=== PATIENT | female | born 1970 | race Caucasian/White ===

== ENCOUNTER 2017-04-22 14:49 | Emergency (ER) | payer MEDICAID ==
[2017-04-22 15:10] VITALS: BP 117/80; PULSE 84; RESP 16; TEMP 98; O2SAT 98
--- NOTE | 2017-04-22 15:53 | ED PDOC ---
HPI: Chest Pain Time Seen by Provider: 04/22/17 15:27 Chief Complaint (Nursing): Anxiety History Per: Patient History/Exam Limitations: no limitations Onset/Duration Of Symptoms: Gradual (1 week) Current Symptoms Are (Timing): Gone Now Severity: Mild Quality: Tightness Associated Symptoms: denies: Nausea, Dyspnea, Diaphoresis, Syncope Modifying Factors: None Exacerbating Factors: None Alleviating Factors: None Additional History Per: Patient Additional Complaint(s): Pt c.o palpitations associated with feeling anxious and stressed. Patient states she is going through family problems at home. Denies SI/Hi plan or intent. no cp but a general tightness, refusing xanax her non exertional no sob, Past Medical History Reviewed: Historical Data, Nursing Documentation, Vital Signs Vital Signs: Last Vital Signs Temp 98.0 F 04/22/17 14:59 Pulse 84 04/22/17 14:59 Resp 16 04/22/17 14:59 BP 117/80 04/22/17 14:59 Pulse Ox 98 04/22/17 15:54 - Medical History PMH: Anxiety, Asthma, Depression, HTN Denies: HIV, Chronic Kidney Disease, Seizures, Sexually Transmitted Disease - Family History Family History: States: Unknown Family Hx - Living Arrangements Living Arrangements: With Family - Social History Current smoker - smoking cessation education provided: No - Immunization History Hx Tetanus Toxoid Vaccination: No Hx Influenza Vaccination: No Hx Pneumococcal Vaccination: No - Home Medications Home Medications: Ambulatory Orders Medication Instructions Recorded Amoxicillin 500 mg PO DAILY 03/06/16 Clarithromycin 500 mg PO DAILY 03/06/16 Lansoprazole 15 mg PO DAILY 03/06/16 Epinephrine HCl [Epipen 0.3 mg MR ONCE PRN #1 ml 03/07/16 Auto-Injector] Prednisone [Deltasone] 20 mg PO DAILY #5 tablet 03/07/16 Cyclobenzaprine [Cyclobenzaprine 5 mg PO TID #12 tab 04/22/17 HCl] - Allergies Allergies/Adverse Reactions: Allergies Allergy/AdvReac Type Severity Reaction Status Date / Time cortisone Allergy Verified 01/07/17 15:33 JULIANA Risk Score for UA/NSTEMI - JULIANA Risk Score Age > 64: NO 3 or more CAD Risk Factors: NO Known CAD (Stenosis greater than 50%): NO Aspirin use in past 7 days: NO Severe Angina: NO EKG ST changes greater than 0.5mm: NO Positive Cardiac Marker: NO JULIANA Score: 0 Risk %: 5% Wells Criteria for PE - Wells Criteria for Pulmonary Embolism Clinical Signs and Symptoms of DVT: No P.E is #1 Diagnosis, or Equally Likely: No Heart Rate >100: No Immobilization at least 3 days;Surgery previous 4 weeks: No Previous, objectively diagnosed PE or DVT: No Hemoptysis: No Malignancy w/treatment within 6 months, or palliative: No Total Score: 0 Review of Systems ROS Statement: Except As Marked, All Systems Reviewed And Found Negative Constitutional: Negative for: Fever, Chills Cardiovascular: Positive for: Palpitations. Negative for: Orthopnea, Paroxysmal Noc. Dyspnea, Edema, Light Headedness Respiratory: Negative for: Cough, Shortness of Breath Gastrointestinal: Negative for: Nausea, Vomiting, Abdominal Pain, Diarrhea Genitourinary Female: Negative for: Dysuria Neurological: Negative for: Weakness, Numbness, Altered Mental Status, Headache , Dizziness Physical Exam - Reviewed Nursing Documentation Reviewed: Yes Vital Signs Reviewed: Yes - Physical Exam Appears: Positive for: Uncomfortable Head Exam: Positive for: ATRAUMATIC, NORMAL INSPECTION, NORMOCEPHALIC Eye Exam: Positive for: Normal appearance, EOMI, PERRL Neck: Positive for: Normal, Painless ROM, Supple. Negative for: Decreased ROM, Limited ROM, Trachea Midline, Pain On Movement Of Neck Cardiovascular/Chest: Positive for: Regular Rate, Rhythm, Chest Non Tender. Negative for: Edema, Gallop, Murmur, Bradycardia, Tachycardia, Ectopy, Friction Rub, Irregularly Irregular Respiratory: Positive for: Normal Breath Sounds. Negative for: Decreased Breath Sounds, Accessory Muscle Use, Crackles, Rales, Rhonchi, Stridor, Wheezing , Respiratory Distress, Plerual Rub Pulses-Radial (L): 2+ Pulses-Radial (R): 2+ Gastrointestinal/Abdominal: Positive for: Normal Exam, Bowel Sounds, Soft. Negative for: Tenderness Back: Positive for: Normal Inspection. Negative for: L CVA Tenderness, R CVA Tenderness Extremity: Positive for: Normal ROM. Negative for: Tenderness, Pedal Edema, Calf Tenderness, Capillary Refill, Deformity, Swelling Neurologic/Psych: Positive for: Alert, office clinician II-XII, Oriented, Mood/Affect ( anxious), Gait (steady). Negative for: Motor/Sensory Deficits, Aphasia, Facial Droop - Laboratory Results Result Diagrams: 04/22/17 15:49 04/22/17 15:49 - ECG ECG: Positive for: Interpreted By Me ECG Rhythm: Positive for: Normal QRS, Normal ST Segment, Sinus Rhythm (71). Negative for: ST/T Changes (no evidence of ischemia) O2 Sat by Pulse Oximetry: 98 Pulse Ox Interpretation: Normal - Radiology X-Ray: Interpreted by Me X-Ray Interpretation: No Acute Disease - Progress ED Course And Treament: cta neg, advise flexeril for pain advise close f/u with pmd or medical clinic pt agree's with plan and leaves ambulatory and in good spirits. Re-evaluation Time: 19:20 Condition: Improved Disposition - Clinical Impression Clinical Impression: Palpitations - Patient ED Disposition Is Patient to be Admitted: No Counseled Patient/Family Regarding: Studies Performed, Diagnosis, Need For Followup, Rx Given - Disposition Referrals: [facility] [place] [Outside] (2 to 3 days) Disposition: Routine/Home Disposition Time: 19:41 Condition: GOOD Prescriptions: Cyclobenzaprine [Cyclobenzaprine HCl] 5 mg PO TID #12 tab Instructions: Palpitations (ED) Forms: [email or web address] (Fijian)
[2017-04-22 16:01] LABS: BASO # 0.1 K/uL (0.0-0.2); BASO % 0.8 % (0.0-2.0); EOS # 0.2 K/uL (0.0-0.7); EOS % 3.1 % (0.0-4.0); HEMATOCRIT 37.2 % (34.0-47.0); LYMPH # 2.3 K/uL (1.0-4.3); LYMPH % 33.8 % (20.0-40.0); MEAN CELL VOLUME 91.6 fl (81.0-99.0); MEAN CORPUSCULAR HEMOGLOBIN 30.4 pg (27.0-31.0); MEAN CORPUSCULAR HGB CONC 33.2 g/dL (33.0-37.0); MEAN PLATELET VOLUME 9.6 fl (7.2-11.7); MONO # 0.6 K/uL (0.0-0.8); MONO % 9.4 % (0.0-10.0); NEUT # 3.6 K/uL (1.8-7.0); NEUT % 52.9 % (50.0-75.0); NRBC % 0.1 % (0.0-0.0); RED CELL DISTRIBUTION WIDTH 13.2 % (11.5-14.5); WHITE BLOOD COUNT 6.7 K/uL (4.8-10.8)
[2017-04-22 16:16] LABS: ALB/GLOB RATIO 1.2 (1.0-2.1); ALKALINE PHOSPHATASE 56 U/L (38-126); ALT/SGPT 25 U/L (9-52); AST/SGOT 18 U/L (14-36); BILIRUBIN,TOTAL 1.5 mg/dl (0.2-1.3); CALCIUM 8.9 mg/dL (8.4-10.2); CARBON DIOXIDE 23 mmol/L (22-30); CHLORIDE 107 mmol/L (98-107); GFR AFRICAN-AMERICAN > 60; GLUCOSE,RANDOM 101 mg/dL (65-105); LIPASE 93 U/L (23-300); MAGNESIUM 2.1 MG/DL (1.6-2.3); POTASSIUM 3.8 MMOL/L (3.6-5.0); SODIUM 139 mmol/l (132-148); TOTAL PROTEIN 7.6 G/DL (6.3-8.2)
[2017-04-22 16:17] LABS: BLOOD UREA NITROGEN 7 mg/dl (7-17)
[2017-04-22 16:22] LABS: PARTIAL THROMBOPLASTIN TIME 30.9 Seconds (25.6-37.1)
[2017-04-22 16:35] LABS: RBC URINE 2 /hpf (0-3); URINE BACTERIA RARE (<OCC); URINE BILIRUBIN NEGATIVE (NEGATIVE); URINE BLOOD SMALL (NEGATIVE); URINE COLOR YELLOW (YELLOW); URINE GLUCOSE (UA) NEG (Normal); URINE KETONE NEGATIVE (NEGATIVE); URINE LEUKOCYTE ESTERASE NEG Leu/uL (Negative); URINE PROTEIN NEGATIVE (NEGATIVE); URINE UROBILINOGEN 0.2-1.0 mg/dL (0.2-1.0); WBC URINE 2 /hpf (0-5)
[2017-04-22 16:43] LABS: THYROID STIMULATING HORMONE 1.02 mIU/ML (0.46-4.68)
[2017-04-22 17:12] LABS: T4 7.58 ug/dl (5.5-11.0)
[2017-04-22] MEDS ORDERED: Iodixanol 320 MG/ML 100 ML BOTTLE IV ONE (18:13)
[2017-04-22] MEDS ORDERED: Sodium Chloride 0.9% 50 ML IV ONE (18:13)
--- NOTE | 2017-04-22 19:29 | CT ---
EXAM: CT Angiography Chest With Intravenous Contrast EXAM DATE/TIME: 04/22/2017 5:04 PM CLINICAL HISTORY: 46 years old, female; Pain; Chest pain; Left-sided chest pain; Patient HX: SOB palpitation cp lt>rt TECHNIQUE: Axial computed tomographic angiography images of the chest with intravenous contrast using pulmonary embolism protocol. All CT scans at this facility use one or more dose reduction techniques, viz.: automated exposure control; ma/kV adjustment per patient size (including targeted exams where dose is matched to indication; i.e. head); or iterative reconstruction technique. MIP reconstructed images were created and reviewed. Coronal and sagittal reformatted images were created and reviewed. CONTRAST: 98 mL of VISIPAQUE administered intravenously. COMPARISON: No relevant prior studies available. FINDINGS: LIMITATIONS: High-density artifact caused by the patient's abdominal wall touching the CT gantry. Mild respiratory motion artifact. PULMONARY ARTERIES: Contrast opacification of the pulmonary arteries is adequate, and there are no filling defects seen to suggest pulmonary embolism. AORTA: No evidence of aortic dissection. LUNGS: No evidence of significant focal consolidation/infiltrate in the lungs. No evidence of diffuse pulmonary vascular congestion. PLEURAL SPACE: No pneumothorax or pleural effusions seen. HEART: Heart appears mildly prominent in size for age. Recommend clinical correlation. No evidence of significant pericardial effusion. BONES/JOINTS: No acute bony abnormality identified. SOFT TISSUES: No acute abnormality of the visualized soft tissues identified. LYMPH NODES: No evidence of diffuse lymphadenopathy. IMPRESSION: - No evidence of pulmonary embolism or other significant acute abnormality in the chest. - See above for remaining findings.
--- NOTE | 2017-04-23 11:16 | RAD ---
HISTORY: palpitiaions COMPARISON: No prior. FINDINGS: LUNGS: No active pulmonary disease. PLEURA: No significant pleural effusion identified, no pneumothorax apparent. CARDIOVASCULAR: Normal. OSSEOUS STRUCTURES: No significant abnormalities. VISUALIZED UPPER ABDOMEN: Normal. OTHER FINDINGS: None. IMPRESSION: No active disease.
--- NOTE | 2017-04-23 11:58 | CARD ---
APPROVED REPORT EKG Measurement Heart [id number] 140P57 [id number] <Conclusion> Normal sinus rhythm Possible Left atrial enlargement Borderline ECG
== END 2017-04-22 20:33 | disposition home or self-care (01) ==
LOC: H.ER 14:49
DX: R00.2 Palpitations (principal); F32.9 Major depressive disorder, single episode, unspecified; F41.9 Anxiety disorder, unspecified; I10 Essential (primary) hypertension; J45.909 Unspecified asthma, uncomplicated
CPT/HCPCS: 71010; 71275; 80053; 80324; 80345; 80346; 80349; 80353; 80358; 80361; 81003; 81025; 83690; 83735; 83880; 83992; 84436; 84443; 84480; 84484; 85025; 85378; 85610; 85730; 93005; 99281; Q9967

== ENCOUNTER 2017-06-30 12:54 | Emergency (ER) | payer MEDICAID ==
[2017-06-30 13:13] VITALS: RESP 20; O2SAT 98
[2017-06-30] MEDS ORDERED: Alum-Mag Hydrox-Simethicone Susp (30 mL) PO STA (13:56)
[2017-06-30 14:16] LABS: BASO # 0.1 K/uL (0.0-0.2); BASO % 1.2 % (0.0-2.0); EOS # 0.3 K/uL (0.0-0.7); EOS % 4.1 % (0.0-4.0); HEMOGLOBIN 12.3 g/dL (12.0-16.0); LYMPH % 26.8 % (20.0-40.0); MEAN CELL VOLUME 90.3 fl (81.0-99.0); MEAN CORPUSCULAR HEMOGLOBIN 31.5 pg (27.0-31.0); MEAN CORPUSCULAR HGB CONC 34.9 g/dL (33.0-37.0); MEAN PLATELET VOLUME 9.7 fl (7.2-11.7); MONO # 0.6 K/uL (0.0-0.8); MONO % 7.5 % (0.0-10.0); NEUT # 4.5 K/uL (1.8-7.0); NEUT % 60.4 % (50.0-75.0); NRBC % 0.2 % (0.0-0.0); RBC 3.9 Mil/uL (3.80-5.20); WHITE BLOOD COUNT 7.4 K/uL (4.8-10.8)
[2017-06-30] MEDS ORDERED: Alum-Mag Hydrox-Simethicone Susp (30 mL) ONE (14:19)
[2017-06-30 14:27] LABS: ALB/GLOB RATIO 1.1 (1.0-2.1); ALBUMIN 3.8 g/dL (3.5-5.0); ALT/SGPT 21 U/L (9-52); AST/SGOT 19 U/L (14-36); BLOOD UREA NITROGEN 13 mg/dl (7-17); CALCIUM 8.5 mg/dL (8.4-10.2); GFR AFRICAN-AMERICAN > 60; GFR NON-AFRICAN AMERICAN > 60
--- NOTE | 2017-06-30 15:19 | ED PDOC ---
HPI: Abdomen Time Seen by Provider: 06/30/17 13:14 Chief Complaint (Nursing): Palpitations Chief Complaint (Provider): Abdominal pain, left sided pain, chest pain History Per: Patient History/Exam Limitations: no limitations Onset/Duration Of Symptoms: Days Outside of [place] travel?: No Current Symptoms Are (Timing): Still Present Additional Complaint(s): 46 yo female with history of anxiety presents with multiples complaints. PT reports episodes of abdominal pain, chest burning and sensation of choking. PT states she has been having these episodes on/off for 2 years. PT was seen by GI and told she has H.Pylori however symptoms continued. Pt states she also has intermittent left leg and arm pain on/off for months. Pt states she also has been having intermittent headaches. Pt requesting MRI for evaluation of CA. No history of, no recent weight loss. Past Medical History Vital Signs: Last Vital Signs Temp 98.4 F 06/30/17 13:11 Pulse 88 06/30/17 13:11 Resp 20 06/30/17 13:11 BP 103/69 06/30/17 13:11 Pulse Ox 98 06/30/17 15:19 - Medical History PMH: Anxiety, Asthma, Depression, HTN Denies: HIV, Chronic Kidney Disease, Seizures, Sexually Transmitted Disease - Family History Family History: States: Unknown Family Hx - Immunization History Hx Tetanus Toxoid Vaccination: No Hx Influenza Vaccination: No Hx Pneumococcal Vaccination: No - Home Medications Home Medications: Ambulatory Orders Medication Instructions Recorded Amoxicillin 500 mg PO DAILY 03/06/16 Clarithromycin 500 mg PO DAILY 03/06/16 Lansoprazole 15 mg PO DAILY 03/06/16 Epinephrine HCl [Epipen 0.3 mg MR ONCE PRN #1 ml 03/07/16 Auto-Injector] Prednisone [Deltasone] 20 mg PO DAILY #5 tablet 03/07/16 Cyclobenzaprine [Cyclobenzaprine 5 mg PO TID #12 tab 04/22/17 HCl] - Allergies Allergies/Adverse Reactions: Allergies Allergy/AdvReac Type Severity Reaction Status Date / Time cortisone Allergy Verified 01/07/17 15:33 Physical Exam - Reviewed Nursing Documentation Reviewed: Yes Vital Signs Reviewed: Yes - Physical Exam Appears: Positive for: Well, Non-toxic, No Acute Distress Head Exam: Positive for: ATRAUMATIC, NORMAL INSPECTION, NORMOCEPHALIC Skin: Positive for: Normal Color, Warm, DRY Eye Exam: Positive for: EOMI, Normal appearance, PERRL ENT: Positive for: Normal ENT Inspection Neck: Positive for: Normal, Painless ROM Cardiovascular/Chest: Positive for: Regular Rate, Rhythm Respiratory: Positive for: CNT, Normal Breath Sounds Gastrointestinal/Abdominal: Positive for: Normal Exam, Bowel Sounds, Soft Back: Positive for: Normal Inspection Extremity: Positive for: Normal ROM Neurologic/Psych: Positive for: Alert, Oriented - Laboratory Results Result Diagrams: 06/30/17 14:05 06/30/17 14:05 - ECG O2 Sat by Pulse Oximetry: 98 Medical Decision Making Medical Decision Making: Head CT ordered for headache and left sided arm and leg pain and weakness. When patient being transported to CT at 1520 patient begins yelling that all the ER ever does is blood work. Discussed with patient the abdomen CT is not indicated at this time. PT becomes agitated in ER and CT ordered. Pt had head CT , chest CT and abdomen CT in the last 2 years. Pt also requested MRI on initial arrival to the room. All reports, which are normal, given to patient for follow-up. Disposition - Clinical Impression Clinical Impression: Abdominal pain, Pain of left side of body - Patient ED Disposition Is Patient to be Admitted: No - Disposition [facility]errals[facility]] [facility] [place] [Outside] [facility] [Outside] [facility] [place] [Outside] Disposition: Routine/Home Disposition Time: 17:10 Condition: GOOD Instructions: Acute Abdomen (Belly Pain), Adult (DC) Forms: [employer] (Lao)
--- NOTE | 2017-06-30 16:16 | CT ---
PROCEDURE: CT scan brain dated 06/30/2017 HISTORY: Left-sided pain, weakness, intermittent COMPARISON: None available. TECHNIQUE: Axial computed tomography images were obtained through the head/brain without intravenous contrast. Radiation dose: Total exam DLP = 880.65 mGy-cm. This CT exam was performed using one or more of the following dose reduction techniques: Automated exposure control, adjustment of the mA and/or kV according to patient size, and/or use of iterative reconstruction technique. FINDINGS: HEMORRHAGE: No acute parenchymal, subarachnoid or extra-axial hemorrhage. BRAIN: No evidence large acute infarct. No obvious parenchymal nor extra-axial mass or collection seen on this noncontrast study. VENTRICLES: Unremarkable. No hydrocephalus. CALVARIUM: Calvarium is intact. PARANASAL SINUSES: Mild mucosal thickening noted in the left chamber sphenoid sinus MASTOID AIR CELLS: Unremarkable as visualized. No inflammatory changes. OTHER FINDINGS: Visualized portions of the orbits appear grossly unremarkable. IMPRESSION: No acute intracranial hemorrhage. Mild mucosal thickening left chamber sphenoid sinus
--- NOTE | 2017-06-30 16:33 | CT ---
PROCEDURE: CT Abdomen and Pelvis without intravenous contrast HISTORY: left sided pain COMPARISON: 07/22/2015 CT abdomen and pelvis. TECHNIQUE: Unenhanced study. Neither oral nor intravenous contrast administered. . Radiation dose: Total exam DLP = 871.07 mGy-cm. This CT exam was performed using one or more of the following dose reduction techniques: Automated exposure control, adjustment of the mA and/or kV according to patient size, and/or use of iterative reconstruction technique. FINDINGS: LOWER THORAX: Unremarkable. LIVER: Unremarkable. No gross lesion or ductal dilatation. GALLBLADDER AND BILE DUCTS: Unremarkable. PANCREAS: Unremarkable. No gross lesion or ductal dilatation. SPLEEN: Unremarkable. ADRENALS: Unremarkable. No mass. KIDNEYS AND URETERS: Unremarkable. No hydronephrosis. No solid mass. VASCULATURE: Unremarkable. No aortic aneurysm. BOWEL: Constipation without fecal impaction or obstruction. APPENDIX: No abnormalities to suggest acute appendicitis. No right lower quadrant inflammatory processes identified. PERITONEUM: Unremarkable. No free fluid. No free air. LYMPH NODES: Unremarkable. No enlarged lymph nodes. BLADDER: Unremarkable. REPRODUCTIVE: Enlarged uterus without focal abnormality. Stable calcifications within the right adnexa. BONES: No acute fracture. OTHER FINDINGS: None. IMPRESSION: No acute findings related to/accounting for the clinical presentation. Additional benign and/or incidental findings described above. No significant interval change compared to the prior examination(s).
--- NOTE | 2017-06-30 16:42 | RAD ---
HISTORY: Left chest pain COMPARISON: 04/22/2017 TECHNIQUE: Chest PA and lateral FINDINGS: LUNGS: No active pulmonary disease. PLEURA: No significant pleural effusion identified. No pneumothorax apparent. CARDIOVASCULAR: Normal. OSSEOUS STRUCTURES: No significant abnormalities. VISUALIZED UPPER ABDOMEN: Normal. OTHER FINDINGS: None. IMPRESSION: No active disease. No significant interval change compared to the prior examination(s).
[2017-06-30 18:00] VITALS: BP 120/70; PULSE 74; TEMP 98.6
--- NOTE | 2017-07-01 10:39 | CARD ---
APPROVED REPORT EKG Measurement Heart [id number] [place] 136P52 [id number] <Conclusion> Normal sinus rhythm Normal ECG
== END 2017-06-30 18:00 | disposition home or self-care (01) ==
LOC: H.ER 12:54
DX: R10.9 Unspecified abdominal pain (principal)

== ENCOUNTER 2017-08-29 13:43 | Emergency (ER) | payer MEDICAID ==
--- NOTE | 2017-08-29 14:18 | ED PDOC ---
HPI: Psych/Substance Abuse Time Seen by Provider: 08/29/17 13:46 Chief Complaint (Nursing): Psychiatric Evaluation Chief Complaint (Provider): Denies complaint History Per: Patient History/Exam Limitations: no limitations Additional Complaint(s): Pt was in court today with son and told the tree climber she was going to kill herself. Pt has history of anxiety/depression and states she just said it because she was upset. Past Medical History Reviewed: Historical Data, Nursing Documentation, Vital Signs Vital Signs: Last Vital Signs Temp 97.8 F 08/29/17 13:48 Pulse 88 08/29/17 13:48 Resp 18 08/29/17 13:48 BP 134/90 08/29/17 13:48 Pulse Ox 99 08/29/17 13:48 - Medical History PMH: Anxiety, Asthma, Depression, HTN Denies: HIV, Chronic Kidney Disease, Seizures, Sexually Transmitted Disease - Family History Family History: States: Unknown Family Hx - Immunization History Hx Tetanus Toxoid Vaccination: No Hx Influenza Vaccination: No Hx Pneumococcal Vaccination: No - Home Medications Home Medications: Ambulatory Orders Medication Instructions Recorded Amoxicillin 500 mg PO DAILY 03/06/16 Clarithromycin 500 mg PO DAILY 03/06/16 Lansoprazole 15 mg PO DAILY 03/06/16 Epinephrine HCl [Epipen 0.3 mg MR ONCE PRN #1 ml 03/07/16 Auto-Injector] Prednisone [Deltasone] 20 mg PO DAILY #5 tablet 03/07/16 Cyclobenzaprine [Cyclobenzaprine 5 mg PO TID #12 tab 04/22/17 HCl] - Allergies Allergies/Adverse Reactions: Allergies Allergy/AdvReac Type Severity Reaction Status Date / Time cortisone Allergy Verified 01/07/17 15:33 Review of Systems ROS Statement: Except As Marked, All Systems Reviewed And Found Negative Constitutional: Negative for: Fever, Chills Psych: Negative for: Depression, Psychosis, Suicidal ideation Physical Exam - Reviewed Nursing Documentation Reviewed: Yes Vital Signs Reviewed: Yes - Physical Exam Appears: Positive for: Well, Non-toxic, No Acute Distress Head Exam: Positive for: ATRAUMATIC, NORMAL INSPECTION, NORMOCEPHALIC Skin: Positive for: Normal Color, Warm, DRY Eye Exam: Positive for: Normal appearance ENT: Positive for: Normal ENT Inspection Neck: Positive for: Normal, Painless ROM Cardiovascular/Chest: Positive for: Regular Rate, Rhythm Respiratory: Positive for: CNT, Normal Breath Sounds Back: Positive for: Normal Inspection Extremity: Positive for: Normal ROM Neurologic/Psych: Positive for: Alert, Oriented - Laboratory Results Urine POC: Negative - ECG O2 Sat by Pulse Oximetry: 99 Medical Decision Making Medical Decision Makin - Pt asking to leave. Inform patient that due to her statement in court that she would have to stay to see a social services manager for evaluation. Pt then follows me out of the room and begins yelling aggressively in the hallway. Pt states she does not want me as her provider. 1:1 ordered. Pt moved to room 8. Endorsed to LEATHA Marcelino. Disposition - Clinical Impression Clinical Impression: Encounter for psychiatric assessment - Patient ED Disposition Is Patient to be Admitted: No - Disposition Disposition: Transfer of Care Disposition Time: 14:36 Condition: STABLE Forms: [employer] (Gibraltarian)
--- NOTE | 2017-08-29 14:38 | ED PDOC ---
- Laboratory Results Urine POC: Negative - ECG O2 Sat by Pulse Oximetry: 99 Medical Decision Making Medical Decision Making: Case was signed out bid writer from DANIELLA Pardo pending crisis eval. Patient is acutely anxious, 0.25 Xanax administered. EKG ordered but patient refused. As per crisis counselor and psychiatrist injection molding operator Dr. North, patient does not meet criteria for admission and is stable for discharge. Patient was given follow-up appointment this coming at mental health clinic. Disposition Counseled Patient/Family Regarding: Diagnosis, Need For Followup - Clinical Impression Clinical Impression: Anxiety - POA Present On Arrival: None - Disposition Referrals: [facility] [Outside] Disposition: Routine/Home Disposition Time: 15:14 Condition: STABLE Additional Instructions: Follow-up as scheduled this coming . Instructions: Anxiety, Adult (DC) Forms: [employer] (Tajik)
[2017-08-29 15:24] VITALS: BP 128/78; PULSE 78; RESP 19; TEMP 97; O2SAT 98
== END 2017-08-29 15:30 | disposition home or self-care (01) ==
LOC: H.ER 13:43
DX: F41.9 Anxiety disorder, unspecified (principal)

== ENCOUNTER 2018-03-28 17:07 | Observation (INO) | payer MEDICAID ==
[2018-03-28] MEDS ORDERED: DiphenhydrAMINE 50 mg/ml Inj IVP ONE (18:09)
--- NOTE | 2018-03-28 18:25 | RAD ---
Date of service: 03/28/2018 HISTORY: Shortness of breath COMPARISON: 06/30/2017 TECHNIQUE: Chest PA and lateral FINDINGS: LINES AND TUBES: None. LUNG AND PLEURA: The lungs are well inflated and clear. No pleural effusion or pneumothorax. HEART AND MEDIASTINUM: The heart is not enlarged. No aortic atherosclerotic calcification present. The hilar and mediastinal contours are within normal limits. SKELETAL STRUCTURES: The bony structures are within normal limits for the patient's age. VISUALIZED UPPER ABDOMEN: Normal. OTHER FINDINGS: None. IMPRESSION: No active pulmonary disease.
[2018-03-28 18:27] LABS: BARBITURATES, UR NEGATIVE (NEGATIVE); BENZODIAZEPINES, UR NEGATIVE (NEGATIVE); OPIATES, UR NEGATIVE (NEGATIVE); PHENCYCLIDINE, UR NEGATIVE (NEGATIVE)
[2018-03-28] MEDS ORDERED: Albuterol 0.083% Inhal Sol (2.5 mg/3 mL) UD INH ONE (18:37)
--- NOTE | 2018-03-28 18:46 | ED PDOC ---
HPI: Chest Pain Additional Complaint(s): Pt seen and examined at bedside with attending. 47F PMH anxiety/depression/asthma p/w non-radiating "chronic chest pain" that is "pressure, pushing down on me" and has dizzines, but is preoccupied with recent findings of bedbugs in her house that she feels is contributing to her new symptoms of itching of her "entire body". Pt denies associated nausea, sweating with this chest pain. Patient required redirection numerous times throughout the interview and appeared far more concerned about the state of her apartment than her health. She was informed of new changes on her EKG and agreed to lab work after initially declining. <Kacy Kenney - Last Filed: 03/28/18 18:54> <Walker Garcia - Last Filed: 03/28/18 19:03> Time Seen by Provider: 03/28/18 17:30 Chief Complaint (Nursing): Chest Pain Past Medical History Vital Signs: Last Vital Signs Temp 36.4 C 03/28/18 17:17 Pulse 82 03/28/18 17:17 Resp 16 03/28/18 17:17 BP 138/83 03/28/18 17:17 Pulse Ox 100 03/28/18 17:17 - Medical History PMH: Anxiety, Asthma, Depression, HTN Denies: HIV, Chronic Kidney Disease, Seizures, Sexually Transmitted Disease - Family History Family History: States: Unknown Family Hx - Immunization History Hx Tetanus Toxoid Vaccination: Yes Hx Influenza Vaccination: No Hx Pneumococcal Vaccination: No <Kacy Kenney - Last Filed: 03/28/18 18:54> Vital Signs: Last Vital Signs Temp 97.6 F 03/28/18 17:17 Pulse 82 03/28/18 17:17 Resp 16 03/28/18 17:17 BP 138/83 03/28/18 17:17 Pulse Ox 100 03/28/18 18:54 <Walker Garcia - Last Filed: 03/28/18 19:03> - Home Medications Home Medications: Ambulatory Orders Medication Instructions Recorded Amoxicillin 500 mg PO DAILY 03/06/16 Clarithromycin 500 mg PO DAILY 03/06/16 Lansoprazole 15 mg PO DAILY 03/06/16 Epinephrine HCl [Epipen 0.3 mg MR ONCE PRN #1 ml 03/07/16 Auto-Injector] Prednisone [Deltasone] 20 mg PO DAILY #5 tablet 03/07/16 Cyclobenzaprine [Cyclobenzaprine 5 mg PO TID #12 tab 04/22/17 HCl] Acetaminophen/Butalbital/Caf 1 tab PO Q4 PRN #30 tab 10/04/17 [Fioricet] - Allergies Allergies/Adverse Reactions: Allergies Allergy/AdvReac Type Severity Reaction Status Date / Time cortisone Allergy Verified 10/04/17 10:30 carrot AdvReac Verified 03/21/18 10:18 celery AdvReac Verified 03/21/18 10:18 gluten AdvReac Verified 03/21/18 10:18 lactose AdvReac Verified 03/21/18 10:18 peanut AdvReac Verified 03/21/18 10:18 Review of Systems ROS Statement: Except As Marked, All Systems Reviewed And Found Negative Cardiovascular: Positive for: Chest Pain. Negative for: Palpitations Respiratory: Negative for: Shortness of Breath Gastrointestinal: Negative for: Nausea, Vomiting, Abdominal Pain Skin: Positive for: Other (Itching) <Kacy Kenney - Last Filed: 03/28/18 18:54> Physical Exam - Reviewed Vital Signs Reviewed: Yes - Physical Exam Appears: Positive for: Well, Non-toxic, In Acute Distress (appears extremely anxious) Head Exam: Positive for: ATRAUMATIC Skin: Positive for: Normal Color, Warm, Dry. Negative for: Rash Eye Exam: Positive for: Normal appearance Cardiovascular/Chest: Positive for: Regular Rate, Rhythm. Negative for: Murmur Respiratory: Positive for: Normal Breath Sounds, Wheezing (mild Rt). Negative for: Crackles, Rales, Rhonchi Gastrointestinal/Abdominal: Positive for: Bowel Sounds, Soft. Negative for: Tenderness Extremity: Positive for: Normal ROM. Negative for: Calf Tenderness Neurologic/Psych: Positive for: Mood/Affect (Distracted, anxious) <Kacy Kenney - Last Filed: 03/28/18 18:54> - ECG O2 Sat by Pulse Oximetry: 100 <Kacy Kenney - Last Filed: 03/28/18 18:54> Medical Decision Making Medical Decision Making: Pt anxious and distracted but presence of inverted T waves (new finding when compared to EKG 03/21/2018) in inferior leads, AVSS. - CBC, CMP, Troponin, Mg - DuoNebs, Benadryl 25mg - CXR - Crisis Eval 1854 CXR w/o evidence of active disease. <Kacy Kenney - Last Filed: 03/28/18 18:54> Medical Decision Making: Time: 1899 -- Patient endorsed to Dr. Portillo, pending lab and re-evaluation. Patient is a likely admit. Scribe Attestation: Documented by Sampson Baltazar, acting as a scribe for Walker Garcia MD. Provider Scribe Attestation: All medical record entries made by the Scribe were at my direction and personally dictated by me. I have reviewed the chart and agree that the record accurately reflects my personal performance of the medical decision making for this patient. I have also personally directed, reviewed, and agree with the discharge instructions and disposition. <Walker Garcia Y - Last Filed: 03/28/18 19:03> Disposition <Kacy Kenney - Last Filed: 03/28/18 18:54> <Walker Garcia - Last Filed: 03/28/18 19:03> - Disposition Referrals: FAMILY PROVIDER,NO [Primary Care Provider] - Forms: [employer] ([employer])
[2018-03-28] MEDS ORDERED: DiphenhydrAMINE 50 mg/ml Inj ONE (18:57)
--- NOTE | 2018-03-28 19:12 | ED PDOC ---
- Laboratory Results Result Diagrams: 03/28/18 19:14 03/28/18 19:14 - ECG O2 Sat by Pulse Oximetry: 100 (RA) Pulse Ox Interpretation: Normal Medical Decision Making Medical Decision Making: Time: 1899 -- Patient endorsed to me by Dr. Garcia, pending lab and re-evaluation. Patient is a likely admit. Scribe Attestation: Documented by Sampson Baltazar, acting as a scribe for Braydon Portillo MD. Provider Scribe Attestation: All medical record entries made by the Scribe were at my direction and personally dictated by me. I have reviewed the chart and agree that the record accurately reflects my personal performance of the history, physical exam, medical decision making, and the department course for this patient. I have also personally directed, reviewed, and agree with the discharge instructions and disposition. Disposition Discussed With DrZach: Sachin Davis Counseled Patient/Family Regarding: Studies Performed, Diagnosis - Clinical Impression Clinical Impression: Chest pain - POA Present On Arrival: None - Disposition Disposition: Hospitalized as Observation Patient Disposition Time: 20:00 Condition: FAIR
[2018-03-28 19:18] LABS: HEMOGLOBIN 12.5 g/dL (12.0-16.0); MEAN CELL VOLUME 91.2 fl (81.0-99.0); MEAN CORPUSCULAR HEMOGLOBIN 29.9 pg (27.0-31.0); MEAN CORPUSCULAR HGB CONC 32.8 g/dL (33.0-37.0); RBC 4.18 Mil/uL (3.80-5.20); WHITE BLOOD COUNT 7.3 K/uL (4.8-10.8)
[2018-03-28 19:38] LABS: ALB/GLOB RATIO 1.1 (1.0-2.1); ALBUMIN 4.3 g/dL (3.5-5.0); ALT/SGPT 31 U/L (9-52); AST/SGOT 33 U/L (14-36); BLOOD UREA NITROGEN 11 mg/dl (7-17); CALCIUM 8.9 mg/dL (8.4-10.2); GFR NON-AFRICAN AMERICAN > 60
[2018-03-29 05:59] LABS: BASO # 0.1 K/uL (0.0-0.2); BASO % 1.3 % (0.0-2.0); EOS # 0.2 K/uL (0.0-0.7); EOS % 4.1 % (0.0-4.0); LYMPH # 2.3 K/uL (1.0-4.3); LYMPH % 42.5 % (20.0-40.0); MEAN CELL VOLUME 91.1 fl (81.0-99.0); MEAN CORPUSCULAR HEMOGLOBIN 30.4 pg (27.0-31.0); MEAN CORPUSCULAR HGB CONC 33.3 g/dL (33.0-37.0); MEAN PLATELET VOLUME 9.4 fl (7.2-11.7); MONO # 0.5 K/uL (0.0-0.8); MONO % 9.1 % (0.0-10.0); NEUT # 2.3 K/uL (1.8-7.0); NRBC % 0.1 % (0.0-0.0); RBC 3.96 Mil/uL (3.80-5.20); RED CELL DISTRIBUTION WIDTH 13.2 % (11.5-14.5); WHITE BLOOD COUNT 5.4 K/uL (4.8-10.8)
[2018-03-29 06:09] LABS: ALB/GLOB RATIO 1.1 (1.0-2.1); ALBUMIN 3.8 g/dL (3.5-5.0); ALT/SGPT 31 U/L (9-52); AST/SGOT 27 U/L (14-36); BLOOD UREA NITROGEN 9 mg/dl (7-17); CALCIUM 8.7 mg/dL (8.4-10.2); GFR NON-AFRICAN AMERICAN > 60
[2018-03-29 08:12] VITALS: RESP 20
[2018-03-29] MEDS ORDERED: Influenza Vaccine 60 MCG/0.5 ML SYR (3 yr & up) IM ONE (08:14)
--- NOTE | 2018-03-29 09:35 | CP.PCM.HP ---
History of Present Illness - History of Present Illness History of Present Illness: pt admitted for left sided cp x several months. has been to [facility] for same and dc. no f/c, n/v/d. has been having cough/congestin/wheezing and feeling itchy. trops x 2 negative. pt admits to having maintainance problems at home Present on Admission - Present on Admission Any Indicators Present on Admission: No Review of Systems - Cardiovascular Cardiovascular: As Per HPI, Chest Pain - Respiratory Respiratory: As Per HPI, Cough, Wheezing, Chest Congestion Past Patient History - Infectious Disease Hx of Infectious Diseases: None - Past Medical History & Family History Past Medical History?: Yes - Past Social History Smoking Status: Never Smoked - CARDIAC Hx Cardiac Disorders: Yes - PULMONARY Hx Respiratory Disorders: Yes - NEUROLOGICAL Hx Neurological Disorder: No - HEENT Hx HEENT Problems: No - RENAL Hx Chronic Kidney Disease: No - ENDOCRINE/METABOLIC Hx Endocrine Disorders: No - HEMATOLOGICAL/ONCOLOGICAL Hx Blood Disorders: No - INTEGUMENTARY Hx Dermatological Problems: No - MUSCULOSKELETAL/RHEUMATOLOGICAL Hx Musculoskeletal Disorders: No Hx Falls: No - GASTROINTESTINAL Hx Gastrointestinal Disorders: No - GENITOURINARY/GYNECOLOGICAL Hx Genitourinary Disorders: No - PSYCHIATRIC Hx Psychophysiologic Disorder: Yes Hx Anxiety: Yes Hx Depression: Yes Hx Substance Use: No - SURGICAL HISTORY Hx Surgeries: No - ANESTHESIA Hx Anesthesia: No Hx Anesthesia Reactions: No Has any member of the family had a problem w/ anesthesia?: No Meds Allergies/Adverse Reactions: Allergies Allergy/AdvReac Type Severity Reaction Status Date / Time cortisone Allergy Verified 10/04/17 10:30 carrot AdvReac Verified 03/21/18 10:18 celery AdvReac Verified 03/21/18 10:18 gluten AdvReac Verified 03/21/18 10:18 lactose AdvReac Verified 03/21/18 10:18 peanut AdvReac Verified 03/21/18 10:18 Physical Exam - Constitutional Appears: Well, Non-toxic, No Acute Distress - Head Exam Head Exam: ATRAUMATIC, NORMAL INSPECTION, NORMOCEPHALIC - Eye Exam Eye Exam: EOMI, Normal appearance, PERRL Pupil Exam: NORMAL ACCOMODATION, PERRL - ENT Exam ENT Exam: Mucous Membranes Moist, Normal Exam - Neck Exam Neck exam: Positive for: Normal Inspection - Respiratory Exam Respiratory Exam: Clear to Auscultation Bilateral, NORMAL BREATHING PATTERN - Cardiovascular Exam Cardiovascular Exam: REGULAR RHYTHM, RRR, +S1, +S2 - GI/Abdominal Exam GI & Abdominal Exam: Normal Bowel Sounds, Soft. absent: Tenderness - Exam Bimanual exam: NORMAL BIMANUAL EXAM - Extremities Exam Extremities exam: Positive for: full ROM, normal capillary refill, normal inspection, pedal pulses present - Back Exam Back exam: NORMAL INSPECTION - Neurological Exam Neurological exam: Alert, CN II-XII Intact, Normal Gait, Oriented x3, Reflexes Normal - Psychiatric Exam Psychiatric exam: Normal Affect, Normal Mood - Skin Skin Exam: Dry, Intact, Normal Color, Warm Results - Vital Signs Recent Vital Signs: Last Vital Signs Temp 97.8 F 03/29/18 08:10 Pulse 66 03/29/18 08:10 Resp 20 03/29/18 08:10 BP 139/90 03/29/18 08:10 Pulse Ox 100 03/29/18 08:10 - Labs Result Diagrams: 03/29/18 04:25 03/29/18 04:25 Labs: Laboratory Results - last 24 hr 03/28/18 03/28/18 03/28/18 17:47 19:14 19:14 WBC 7.3 RBC 4.18 Hgb 12.5 Hct 38.1 MCV 91.2 MCH 29.9 MCHC 32.8 L RDW 13.0 Plt Count 231 MPV Neut % (Auto) Lymph % (Auto) [place] % (Auto) Eos % (Auto) Baso % (Auto) Neut # (Auto) Lymph # (Auto) [place] # (Auto) Eos # (Auto) Baso # (Auto) Sodium 140 Potassium 3.8 Chloride 108 H Carbon Dioxide 27 Anion Gap 9 L BUN 11 Creatinine 0.4 L Est GFR ( Amer) > 60 Est GFR (Non-Af Amer) > 60 Random Glucose 98 Calcium 8.9 Magnesium 2.2 Total Bilirubin 0.9 AST 33 ALT 31 Alkaline Phosphatase 57 Troponin I < 0.0120 Total Protein 8.2 Albumin 4.3 Globulin 3.9 Albumin/Globulin Ratio 1.1 Urine Opiates Screen Negative Urine Methadone Screen Negative Ur Barbiturates Screen Negative Ur Phencyclidine Scrn Negative Ur Amphetamines Screen Negative U Benzodiazepines Scrn Negative U Oth Cocaine Metabols Negative U Cannabinoids Screen Negative 03/29/18 03/29/18 04:25 04:25 WBC 5.4 RBC 3.96 Hgb 12.0 Hct 36.1 MCV 91.1 MCH 30.4 MCHC 33.3 RDW 13.2 Plt Count 198 MPV 9.4 Neut % (Auto) 43.0 L Lymph % (Auto) 42.5 H [place] % (Auto) 9.1 Eos % (Auto) 4.1 H Baso % (Auto) 1.3 Neut # (Auto) 2.3 Lymph # (Auto) 2.3 [place] # (Auto) 0.5 Eos # (Auto) 0.2 Baso # (Auto) 0.1 Sodium 139 Potassium 3.5 L Chloride 109 H Carbon Dioxide 25 Anion Gap 9 L BUN 9 Creatinine 0.5 L Est GFR ( Amer) > 60 Est GFR (Non-Af Amer) > 60 Random Glucose 88 Calcium 8.7 Magnesium Total Bilirubin 1.4 H AST 27 ALT 31 Alkaline Phosphatase 56 Troponin I < 0.0120 Total Protein 7.3 Albumin 3.8 Globulin 3.5 Albumin/Globulin Ratio 1.1 Urine Opiates Screen Urine Methadone Screen Ur Barbiturates Screen Ur Phencyclidine Scrn Ur Amphetamines Screen U Benzodiazepines Scrn U Oth Cocaine Metabols U Cannabinoids Screen Assessment & Plan (1) DVT prophylaxis Assessment and Plan: scd and ae hose ambulation Status: Acute (2) Chest pain Assessment and Plan: trops x 3 echo cardio likely noncardiac Status: Acute (3) Allergic rhinitis Assessment and Plan: cont home meds Status: Acute (4) Wheezing Assessment and Plan: not at present cont home meds ?? RAD Status: Acute Decision To Admit - Pt Status Changed To: Hospital Disposition Of: Observation - . Bed Request Type: Telemetry Admitting Physician: Haylie Calabrese
[2018-03-29] MEDS ORDERED: Albuterol HFA 90 mcg/actuation (8 g) INH PRN (09:36)
[2018-03-29] MEDS ORDERED: Pantoprazole 40 mg EC Tab PO SCH (09:45)
--- NOTE | 2018-03-29 13:50 | CARD ---
APPROVED REPORT Date of service: 03/29/2018 EXAM: Two-dimensional and M-mode echocardiogram with Doppler and color Doppler. Other Information Quality : AverageRhythm : NSR INDICATION Chest Pain 2D DIMENSIONS IVSd1.07 (0.7-1.1cm)LVDd4.26 (3.9-5.9cm) LVOT Diameter2.35 (1.8-2.4cm)PWd1.14 (0.7-1.1cm) IVSs1.28 (0.8-1.2cm)LVDs3.35 (2.5-4.0cm) FS (%) 21.3 %PWs1.46 (0.8-1.2cm) M-Mode DIMENSIONS Left Atrium (MM)4.11 (2.5-4.0cm)IVSd0.88 (0.7-1.1cm) Aortic Root3.28 (2.2-3.7cm)LVDd4.96 (4.0-5.6cm) Aortic Cusp Exc.1.99 (1.5-2.0cm)PWd1.16 (0.7-1.1cm) IVSs1.38 cmFS (%) 35 % LVDs3.23 (2.0-3.8cm)PWs1.49 cm Aortic Valve AoV Peak Syxijefx49.2cm/sAoV VTI19.4cmAO Peak GR.4mmHg LVOT Peak Vwxrmjsm11.1cm/sLVOT VTI17.78cmAO Mean GR.2mmHg BASIA (VMAX)1.58vm8BJK (VTI)2.06cm2 Mitral Valve MV E [place]00.7cm/sMV DECEL [id number] A Qbelvuwp58.2cm/s MV KHG77uzU/A ratio1.3MVA (PHT)3.42cm2 TDI Lateral E' Peak V12.87cm/sMedial E' Peak V7.82cm/sE/Lateral E'4.3 E/Medial E'7.1 LEFT VENTRICLE The left ventricle is normal size. There is normal left ventricular wall thickness. The left ventricular systolic function is normal. The estimated ejection fraction is 60-65% No regional wall motion abnormalities noted.. The left ventricular diastolic function is normal. No left ventricle thrombus noted on this study. There is no ventricular septal defect visualized. There is no left ventricular aneurysm. There is no mass noted in the left ventricle. RIGHT VENTRICLE The right ventricle is normal size. There is normal right ventricular wall thickness. The right ventricular systolic function is normal. ATRIA The left atrium is mildly dilated. The right atrium size is normal. The interatrial septum is intact with no evidence for an atrial septal defect. AORTIC VALVE The aortic valve is normal in structure. No aortic regurgitation is present. There is no aortic valvular stenosis. There is no aortic valvular vegetation. MITRAL VALVE The mitral valve is normal in structure. There is no evidence of mitral valve prolapse. There is no mitral valve stenosis. There is no mitral valve regurgitation noted. TRICUSPID VALVE The tricuspid valve is normal in structure. There is trace tricuspid valve regurgitation noted. There is no tricuspid valve prolapse or vegetation. There is no tricuspid valve stenosis. PULMONIC VALVE The pulmonary valve is normal in structure. There is no pulmonic valvular regurgitation. There is no pulmonic valvular stenosis. GREAT VESSELS The aortic root is normal in size. The ascending aorta is normal in size. The pulmonary artery is normal. The IVC is normal in size and collapses >50% with inspiration. PERICARDIAL EFFUSION There is no pericardial effusion. There is no pleural effusion. <Conclusion> The estimated ejection fraction is 60-65% The left ventricular diastolic function is normal. The left atrium is mildly dilated. There is trace tricuspid valve regurgitation noted.
[2018-03-29 15:43] VITALS: BP 136/78; PULSE 76; TEMP 98.2; O2SAT 99
--- NOTE | 2018-03-30 21:47 | CP.PCM.DIS ---
Provider - Provider Date of Admission: 03/28/18 21:38 Attending physician: Haylie Calabrese MD Time Spent in preparation of Discharge (in minutes): 15 Diagnosis - Discharge Diagnosis (1) DVT prophylaxis Status: Acute (2) Chest pain Status: Acute (3) Allergic rhinitis Status: Acute (4) Wheezing Status: Acute Hospital Course - Lab Results Lab Results: Most Recent Lab Values WBC 5.4 K/uL (4.8-10.8) 03/29/18 04:25 RBC 3.96 Mil/uL (3.80-5.20) 03/29/18 04:25 Hgb 12.0 g/dL (12.0-16.0) 03/29/18 04:25 Hct 36.1 % (34.0-47.0) 03/29/18 04:25 MCV 91.1 fl (81.0-99.0) 03/29/18 04:25 MCH 30.4 pg (27.0-31.0) 03/29/18 04:25 MCHC 33.3 g/dL (33.0-37.0) 03/29/18 04:25 RDW 13.2 % (11.5-14.5) 03/29/18 04:25 Plt Count 198 K/uL (130-400) 03/29/18 04:25 MPV 9.4 fl (7.2-11.7) 03/29/18 04:25 Neut % (Auto) 43.0 % (50.0-75.0) L 03/29/18 04:25 Lymph % (Auto) 42.5 % (20.0-40.0) H 03/29/18 04:25 [place] % (Auto) 9.1 % (0.0-10.0) 03/29/18 04:25 Eos % (Auto) 4.1 % (0.0-4.0) H 03/29/18 04:25 Baso % (Auto) 1.3 % (0.0-2.0) 03/29/18 04:25 Neut # (Auto) 2.3 K/uL (1.8-7.0) 03/29/18 04:25 Lymph # (Auto) 2.3 K/uL (1.0-4.3) 03/29/18 04:25 [place] # (Auto) 0.5 K/uL (0.0-0.8) 03/29/18 04:25 Eos # (Auto) 0.2 K/uL (0.0-0.7) 03/29/18 04:25 Baso # (Auto) 0.1 K/uL (0.0-0.2) 03/29/18 04:25 Sodium 139 mmol/l (132-148) 03/29/18 04:25 Potassium 3.5 MMOL/L (3.6-5.0) L 03/29/18 04:25 Chloride 109 mmol/L (98-107) H 03/29/18 04:25 Carbon Dioxide 25 mmol/L (22-30) 03/29/18 04:25 Anion Gap 9 (10-20) L 03/29/18 04:25 BUN 9 mg/dl (7-17) 03/29/18 04:25 Creatinine 0.5 mg/dl (0.7-1.2) L 03/29/18 04:25 Est GFR ( Amer) > 60 03/29/18 04:25 Est GFR (Non-Af Amer) > 60 03/29/18 04:25 Random Glucose 88 mg/dL (65-105) 03/29/18 04:25 Calcium 8.7 mg/dL (8.4-10.2) 03/29/18 04:25 Magnesium 2.2 MG/DL (1.6-2.3) 03/28/18 19:14 Total Bilirubin 1.4 mg/dl (0.2-1.3) H 03/29/18 04:25 AST 27 U/L (14-36) 03/29/18 04:25 ALT 31 U/L (9-52) 03/29/18 04:25 Alkaline Phosphatase 56 U/L (38-126) 03/29/18 04:25 Troponin I < 0.0120 ng/mL (0.00-0.120) 03/29/18 12:19 Total Protein 7.3 G/DL (6.3-8.2) 03/29/18 04:25 Albumin 3.8 g/dL (3.5-5.0) 03/29/18 04:25 Globulin 3.5 gm/dL (2.2-3.9) 03/29/18 04:25 Albumin/Globulin Ratio 1.1 (1.0-2.1) 03/29/18 04:25 Urine Opiates Screen Negative (NEGATIVE) 03/28/18 17:47 Urine Methadone Screen Negative (NEGATIVE) 03/28/18 17:47 Ur Barbiturates Screen Negative (NEGATIVE) 03/28/18 17:47 Ur Phencyclidine Scrn Negative (NEGATIVE) 03/28/18 17:47 Ur Amphetamines Screen Negative (NEGATIVE) 03/28/18 17:47 U Benzodiazepines Scrn Negative (NEGATIVE) 03/28/18 17:47 U Oth Cocaine Metabols Negative (NEGATIVE) 03/28/18 17:47 U Cannabinoids Screen Negative (NEGATIVE) 03/28/18 17:47 - Hospital Course Hospital Course: cardio, echo, trops Discharge Exam - Head Exam Head Exam: ATRAUMATIC, NORMAL INSPECTION, NORMOCEPHALIC Discharge Plan - Discharge Medications Prescriptions: DiphenhydrAMINE [Benadryl] 25 mg PO Q6 PRN #30 cap PRN Reason: Itching / Pruritus DiphenhydrAMINE [Benadryl] 25 mg PO Q6 PRN #30 cap PRN Reason: Itching / Pruritus Loratadine [Claritin] 1 tab PO DAILY #30 tab - Follow Up Plan Condition: FAIR Disposition: HOME/ ROUTINE Instructions: Chest Pain (DC) Additional Instructions: follow up with pmd in 1 week cardio cleared final dx-cp, noncardiac, allergies f/u rmg, rted prn, med pser med rec 03/30/18 called pt at her requested advised meds re-erx to pharmacy. pt became rude and said she was kept longer than she needed to. attempted to advise that she was kept to be evaled by bw, echo and cardio. pt then hung up on this provider Referrals: Haylie Calabrese MD [Staff Provider] - Seth Floyd MD [Staff Provider] -
== END 2018-03-29 19:10 | disposition home or self-care (01) ==
LOC: SUPCPDRO 17:07 → H.ER 17:07 → H.ERHOLD 21:38 → H.TEL 23:28
PROVIDERS: ADMIT Family Medicine; ATTEND Family Medicine
DX: R07.89 Other chest pain (principal); I10 Essential (primary) hypertension; J45.909 Unspecified asthma, uncomplicated
CPT/HCPCS: 36415; 71046; 80053; 80324; 80345; 80346; 80349; 80353; 80358; 80361; 81025; 83735; 83992; 84484; 85025; 85027; 93306; 94150; 94640; 96374; 99285; G0378; J1200